=== PATIENT | female | born 1950 | race Caucasian/White ===

== ENCOUNTER 2021-07-27 18:36 | Emergency (ER) | payer MEDICARE, OTHER, SELFPAY ==
[2021-07-27] VITALS (9 sets, daily range): BP systolic 175–206; BP diastolic 84–97; PULSE 58–64; RESP 10–22; TEMP 36.7; O2SAT 96–99; BMI 25.0
--- NOTE | 2021-07-27 19:02 | DI.RAD.S_ITS ---
PROCEDURE: XR CHEST 1V INDICATIONS: HTN emergency TECHNIQUE: One view of the chest was acquired. COMPARISON: None. FINDINGS: Surgical changes and devices: None. Lungs and pleura: Lungs are clear. No pleural effusions or pneumothorax. Mediastinum: Mediastinal contours appear normal. Heart size is normal. Bones and chest wall: No suspicious bony lesions. Overlying soft tissues appear unremarkable. IMPRESSION: No acute cardiopulmonary abnormalities. Dictated by: David Hays M.D. on 07/27/2021 at 19:22 Approved by: David Hays M.D. on 07/27/2021 at 19:22
--- NOTE | 2021-07-27 19:19 | ED_ITS ---
HPI - Recheck/Abnormal Lab/Rx General Chief Complaint: Recheck/Abnormal Lab/Rx Stated Complaint: high blood pressure Time Seen by Provider: 07/27/21 19:02 Source: patient Mode of arrival: Ambulatory History of Present Illness HPI narrative: 70-year-old female nonsmoker with noncontributory medical history presents with her in the chief complaint of a vague headache and elevated blood pressure. She states that she had been seen at the dentist earlier in the week and found that her blood pressure was over 200. She was encouraged to follow closely but was unable to see her PCP. She started developing some chest pressure and headache and was instructed to present to the fire department on [facility]. She was evaluated and found to have elevated blood pressure and instructed to present to the emergency department. She denies any ongoing headache, blurred vision or focal neurologic findings such as numbness, tingling or weakness. She has very minimal anterior chest pressure but denies any shortness of breath. She has no nausea, vomiting or diarrhea and denies abdominal pain. She denies any dietary or medication change Related Data Previous Rx's Medication Instructions Recorded amlodipine 5 mg tablet 5 mg PO DAILY #30 tab 07/27/21 Allergies Allergy/AdvReac Type Severity Reaction Status Date / Time No Known Drug Allergies Allergy Verified 07/27/21 19:28 Review of Systems Review of Systems Narrative: GENERAL: Denies chills, fatigue, malaise, fever, sweats. HEENT: Denies sinus pain, ear pain, sore throat, difficulty swallowing, dizziness. RESPIRATORY: Denies dyspnea, cough, wheezing, hemoptysis, sputum. CARDIOVASCULAR: See HPI GASTROINTESTINAL: Denies nausea, vomiting, abdominal pain, diarrhea, constip ation, melena. : Denies dysuria, frequency, incontinence, hematuria, urinary retention. MUSCULOSKELETAL: denies weakness, joint pain, or bony pain SKIN: Denies rash, skin lesions, or other NEUROLOGIC: See HP PSYCHIATRIC: No concerning psychosocial issues. 12 point review of systems is negative except for those stated above Patient History Social History Smoking Status: Never smoker Smoking Status: Never smoker alcohol intake frequency: 0-2 drinks per day Substance Use Type: does not use Exam Narrative Exam Narrative: GENERAL: [70] year old patient appears stated age. Well-developed patient, in mild distress. HEAD: Atraumatic. Normocephalic. EYES: Pupils equal round and reactive. Extraocular motions intact. No scleral icterus. No injection or drainage. ENT: Nose without bleeding, purulent drainage. Throat without erythema, tonsillar hypertrophy or exudate. Airway patent. NECK: Trachea midline. Non tender CARDIOVASCULAR: Regular rate and rhythm without murmurs, gallops, or rubs. RESPIRATORY: Clear to auscultation. Breath sounds equal bilaterally. No wheezes, rales, or rhonchi. GASTROINTESTINAL: Abdomen soft, non-tender, nondistended. EXTREMITIES: No edema or joint tenderness. BACK: Nontender without deformity or crepitance. No flank tenderness. NEURO: AOx3. SKIN: No rash or erythema of visible areas Initial Vital Signs Initial Vital Signs: Vital Signs Temperature 98.0 F 07/27/21 18:44 Pulse Rate 58 L 07/27/21 18:44 Respiratory Rate 16 07/27/21 18:44 Blood Pressure 206/97 H 07/27/21 18:44 Pulse Oximetry 98 07/27/21 18:44 Course Orders Ordered: ED Orders 07/27/21 19:02 XR chest 1V Stat 07/27/21 19:20 Complete Blood Count AUTO DIFF Stat Comprehensive Metabolic Panel Stat Lipase Stat NT-proBNP (BNP-Adult 18+) Stat Troponin & CK Cardiac Panel Stat 07/27/21 19:25 EKG-12 Lead Stat 07/27/21 22:11 Urine Microscopic Stat Discontinued Medications Amlodipine Besylate (Amlodipine 5 Mg Tablet) 5 mg PO NOW ONE Stop: 07/27/21 20:24 Last Admin: 07/27/21 20:52 Dose: 5 mg Documented by: ATAYLOR Aspirin (Aspirin 81 Mg Chew Tab) 324 mg PO NOW ONE Stop: 07/27/21 19:03 Last Admin: 07/27/21 19:29 Dose: 324 mg Documented by: ATAYLOR Sodium Chloride (Normal Saline 0.9%) 1,000 mls @ 150 mls/hr IV CONT DADA Vital Signs Vital signs: Vital Signs - 8 hr 07/27/21 18:44 07/27/21 19:16 07/27/21 19:30 Temperature 98.0 F Pulse Rate 58 L 64 62 Respiratory Rate 16 20 21 Blood Pressure 206/97 H Pulse Oximetry 98 99 98 07/27/21 19:34 07/27/21 20:00 07/27/21 20:57 Temperature Pulse Rate 62 61 62 Respiratory Rate 22 10 L 18 Blood Pressure 201/95 H 195/88 H 190/90 H Pulse Oximetry 98 97 99 07/27/21 20:58 07/27/21 21:00 07/27/21 21:30 Temperature Pulse Rate 61 62 62 Respiratory Rate 18 Blood Pressure 180/86 H 175/84 H Pulse Oximetry 96 96 96 MDM - Recheck/Abnormal Lab/Rx Lab Data Result diagrams: 07/27/21 19:20 07/27/21 19:20 Labs: Lab Results 07/27/21 07/27/21 07/27/21 Range/Units 19:20 19:20 22:11 WBC 7.8 (4.5-11.0) X10^3/uL RBC 5.23 H (4.0-5.2) X10^6/uL Hgb 14.2 (12.0-16.0) g/dL Hct 43.2 (36-46) % MCV 82.7 (80-100) fL MCH 27.1 (26-34) PG MCHC 32.8 (30-36) % RDW 13.6 (11.6-14.8) % Plt Count TNP Neut % (Auto) 67.1 (50-75) % Lymph % (Auto) 22.3 L (25-40) % [place] % (Auto) 7.2 (3-14) % Eos % (Auto) 2.2 (2-4) % Baso % (Auto) 1.2 (0-2) % Neut # (Auto) 5200 (4231-6451) /uL Lymph # (Auto) 1700 (5511-8102) /uL [place] # (Auto) 600 (0-900) /uL Eos # (Auto) 200 (0-450) /uL Baso # (Auto) 100 (0-100) /uL Sodium 139 (137-145) mmol/L Potassium 3.6 (3.4-5.1) mmol/L Chloride 104 (98-107) mmol/L Carbon Dioxide 27 (22-32) mmol/L BUN 21 H (7-17) mg/dL Creatinine 0.64 (0.52-1.04) mg/dL Estimated GFR > 60.0 (>60) mL/min BUN/Creatinine Ratio 32.8 H (6-22) Glucose 101 (80-110) mg/dL Calcium 9.3 (8.4-10.2) mg/dL Total Bilirubin 0.5 (0.2-1.3) mg/dL AST 37 H (14-36) IU/L ALT 28 (<35) IU/L Alkaline Phosphatase 73 (38-126) U/L Total Creatine Kinase 146 H (30-135) U/L CK-MB (CK-2) 2.03 (<2.37) ng/mL CK-MB (CK-2) Rel Index 1.4 L (1.5-5.0) % Troponin I < 0.012 (0.01-0.034) ng/mL NT-Pro-B Natriuret Pep 174 H (<125) pg/mL Total Protein 8.0 (6.3-8.2) g/dL Albumin 4.9 (3.5-5.0) g/dL Globulin 3.1 (1.7-4.1) g/dL Albumin/Globulin Ratio 1.6 (1.0-2.8) Lipase 94 (23-300) U/L Urine RBC 5-10/hpf H (0-5/HPF) Urine WBC None seen (0-5/HPF) Ur Squamous Epith Cells 0-1 /hpf (0-5/HPF) Urine Bacteria None seen (None) Ur Culture Indicated? Cult not indicated Urine Dip Bedside Urine Glucose Negative Bedside Urine Bilirubin - Negative Bedside Urine Ketone - Negative Urine Specific [place] 1.015 Bedside Urine Occult Blood ++ Bedside Urine pH 7.0 Bedside Urine Protein - Negative Bedside Urine Urobilinogen - Negative Bedside Urine Nitrite - Negative Bedside Urine Leukocytes - Negative Esterase MDM Narrative Medical decision making narrative: Patient has significant improvements in symptoms after above-stated therapies which correlates appropriately with blood pressure that is improved to the 160s and 170s. Labs are reassuring as is remainder of exam. Return precautions given and questions have been answered to her apparent satisfaction Discharge Plan Departure Patient Disposition: Home Clinical Impression: Benign essential HTN Instructions: Essential Hypertension Activity Restrictions/Additional Instructions: *You have been diagnosed with [mild symptoms as a consequence of hypertension. Her blood work, EKG, chest x-ray and response to medications is very reassuring *What to do: *Please continue to take your regular medications as directed. [x ] New medication prescriptions sent to your pharmacy: [[facility] ] [ ] New medication written as a paper prescription [ ] No new medications given *Please follow up with your primary care provider in 2-3 days, call for an appointment. Let them know you were seen in the Emergency Department and that we ask that you be seen in follow up. We will electronically transmit a record of today's note if your PCP is in our system *If you do not have a primary care provider please contact the [facility] Resource line at [phone]. They will ask some questions about your medical history and help get you set up with a doctor in the community. *Return to Emergency Department if you should have any new, worsening or concerning symptoms, such as [fever greater than 101 F, shaking chills, worsening pain, persistent vomiting or other bothersome symptoms] Prescriptions: New amlodipine 5 mg tablet 5 mg PO DAILY Qty: 30 0RF
[2021-07-27] MEDS: ASPIRIN 81 MG CHEW TAB 324 MG PO (19:29)
[2021-07-27 19:33] LABS: Add Manual Diff / Slide Review NO; Basophils Absolute Auto 100 /uL (0-100); Basophils Percent Auto 1.2 % (0-2); Eosinophils Absolute Auto 200 /uL (0-450); Eosinophils Percent Auto 2.2 % (2-4); Hematocrit 43.2 % (36-46); Hemoglobin 14.2 g/dL (12.0-16.0); Lymphocytes Absolute Auto 1700 /uL (1100-4500); Lymphocytes Percent Auto 22.3 % (25-40); Mean Corpuscular HGB Conc 32.8 % (30-36); Mean Corpuscular Hemoglobin 27.1 PG (26-34); Mean Corpuscular Volume 82.7 fL (80-100); Monocytes Absolute Auto 600 /uL (0-900); Monocytes Percent Auto 7.2 % (3-14); Neutrophils Absolute Auto 5200 /uL (1500-7000); Neutrophils Percent Auto 67.1 % (50-75); Red Blood Cell Count 5.23 X10^6/uL (4.0-5.2); Red Cell Distribution Width 13.6 % (11.6-14.8); White Blood Cell Count 7.8 X10^3/uL (4.5-11.0)
--- NOTE | 2021-07-27 19:49 | PC.NURSE ---
Addendum entered by Suzie Coello R.N. 07/27/21 19:58: Pt reports headache, now resolved. No edema noted bilateral, pt wears compression socks states her left ankle swells r/t injury in high school, no new swelling noted by pt. Original Note: Pt
[2021-07-27 20:04] LABS: Alanine Aminotransferase 28 IU/L (<35); Albumin 4.9 g/dL (3.5-5.0); Albumin Globulin Ratio 1.6 (1.0-2.8); Alkaline Phosphatase 73 U/L (38-126); Aspartate Aminotransferase 37 IU/L (14-36); BUN Creatinine Ratio 32.8 (6-22); Bilirubin Total 0.5 mg/dL (0.2-1.3); Blood Urea Nitrogen 21 mg/dL (7-17); Calcium 9.3 mg/dL (8.4-10.2); Carbon Dioxide 27 mmol/L (22-32); Chloride 104 mmol/L (98-107); Creatine Kinase 146 U/L (30-135); Estimated Glomerular Filt Rate > 60.0 mL/min (>60); Globulin 3.1 g/dL (1.7-4.1); Glucose 101 mg/dL (80-110); HEMOLYSIS 38 (0-50); Lipase 94 U/L (23-300); Potassium 3.6 mmol/L (3.4-5.1); Sodium 139 mmol/L (137-145)
[2021-07-27 20:15] LABS: NT-proBNP (BNP-Adult 18+) 174 pg/mL (<125); Troponin I < 0.012 ng/mL (0.01-0.034)
[2021-07-27 20:19] LABS: CKMB % Relative Index 1.4 % (1.5-5.0); Creatine Kinase MB 2.03 ng/mL (<2.37)
[2021-07-27] MEDS: AMLODIPINE 5 MG TABLET PO (20:52)
[2021-07-27 22:25] LABS: Bacteria Urine None Seen; RBC Urine 5-10/HPF (0-5/HPF); WBC Urine None Seen (0-5/HPF)
[2021-07-27 22:26] LABS: Culture Indicated Urine Cult Not Indicated; Squamous Epithelial Cell Urine 0-1 /HPF (0-5/HPF)
== END 2021-07-27 22:13 | disposition home or self-care (01) ==
PROVIDERS: Emergency Provider Emergency Medicine; Family Provider Family Medicine
DX: I10 Essential (primary) hypertension (principal)
CPT/HCPCS: 36415; 71045; 80053; 81003; 81015; 82550; 82553; 83690; 83880; 84484; 85025; 93005; 99284

== ENCOUNTER → 2024-10-15 11:56 | Outpatient (CLI) | payer MEDICARE, OTHER, SELFPAY ==
[2024-10-15 19:29] LABS: HEMOLYSIS < 15 (0-50); Iron 83 ug/dL (37-170)
[2024-10-15 19:32] LABS: Alanine Aminotransferase 41 IU/L (<35); Albumin 4.2 g/dL (3.5-5.0); Albumin Globulin Ratio 1.8 (1.0-2.8); Alkaline Phosphatase 67 U/L (38-126); Aspartate Aminotransferase 35 IU/L (14-36); Bilirubin Total 0.5 mg/dL (0.2-1.3); Blood Urea Nitrogen 17 mg/dL (7-17); Carbon Dioxide 30 mmol/L (22-32); Chloride 104 mmol/L (98-107); Cholesterol 163 mg/dL (140-199); Estimated Glomerular Filt Rate > 60 mL/min (>60); Globulin 2.3 g/dL (1.7-4.1); Glucose 97 mg/dL (80-110); HDL Cholesterol 48 mg/dL (40-60); HEMOLYSIS < 15 (0-50); LDL Cholesterol Calculated 92 mg/dL (<100); Potassium 3.9 mmol/L (3.4-5.1); Sodium 140 mmol/L (137-145); Total Protein 6.5 g/dL (6.3-8.2); Triglycerides 113 mg/dL (35-150)
[2024-10-15 19:41] LABS: Percent Iron Saturation 29 % (15-50); Total Iron Binding Capacity 283 ug/dL (265-497); Transferrin 219 mg/dL (206-381)
[2024-10-15 19:59] LABS: Basophils Absolute Auto 100 /uL (0-100); Basophils Percent Auto 0.9 % (0-2); Eosinophils Absolute Auto 100 /uL (0-450); Eosinophils Percent Auto 1.7 % (2-4); Hematocrit 42.8 % (36-46); Hemoglobin 14.4 g/dL (12.0-16.0); Lymphocytes Absolute Auto 1100 /uL (1100-4500); Lymphocytes Percent Auto 17.4 % (25-40); Mean Corpuscular HGB Conc 33.6 % (30-36); Mean Corpuscular Volume 83.5 fL (80-100); Monocytes Absolute Auto 500 /uL (0-900); Monocytes Percent Auto 7.4 % (3-14); Neutrophils Absolute Auto 4600 /uL (1500-7000); Neutrophils Percent Auto 72.6 % (50-75); Red Blood Cell Count 5.13 X10^6/uL (4.0-5.2); White Blood Cell Count 6.4 X10^3/uL (4.5-11.0)
[2024-10-15 20:01] LABS: Thyroid Stimulating Hormone 1.65 uIU/mL (0.47-4.68)
[2024-10-15 20:06] LABS: Ferritin 51 ng/mL (11-264)
[2024-10-15 20:11] LABS: Add Manual Diff / Slide Review SLIDE REVIEW
[2024-10-15 20:33] LABS: Platelet Estimate Decreased on smear; RBC Morphology Normal Morphology
[2024-10-16 23:08] LABS: HBsAg Screen Negative (Negative); Hepatitis A Antibody IgM Negative (Negative); Hepatitis B Core Antibody IgM Negative (Negative); Hepatitis C Antibody Non Reactive (Non Reactive)
[2024-10-21 21:11] LABS: ANA Screen, IFA Negative (.)
== END ==
PROVIDERS: PCP Family Medicine; Referring Provider Family Medicine; Visit Provider Family Medicine
DX: I10 Essential (primary) hypertension (principal); R74.01 Elevation of levels of liver transaminase levels; E78.2 Mixed hyperlipidemia; K75.9 Inflammatory liver disease, unspecified
CPT/HCPCS: 80053; 80061; 80074; 82728; 83540; 83550; 84443; 85025; 86038